=== PATIENT | male | born 1970 | race Caucasian/White ===

== ENCOUNTER 2024-12-09 17:21 | Emergency (ER) | payer OTHER, SELFPAY ==
--- OUTSIDE RECORDS SUMMARY | 2024-12-09 17:23 | XMS_ITS | Clinical Summary ---
Author Organization [facility] Address [place], [place] [address] Care Team Providers Care Cytologist Name Role Phone Rj Barron MD Primary Care Provider [phone] Allergies Active Allergy Reactions Criticality Noted Date Comments Iodine 12/26/2006 Shellfish Containing Products Anaphylaxis High 12/26 Medications nitroglycerin (NITROSTAT) 0.[address] 1 tablet under the tongue every 5 minutes if needed for Chest Pain (Hold for SBP less than 90.). 10 tablet 0 04/24/20 14 Active indomethacin (INDOCIN) 50 mg capsuleIndication s:Acute gout of left foot, unspecified cause Take 1 Capsule (50 mg) by mouth 3 times daily with meals. 30 capsule. 1 03/06/20 22 Active predniSONE (DELTASONE) 20 mg tabletIndications :Acute gout of left foot, unspecified cause Take 2 Tablets (40 mg) by mouth once daily. Can stop earlier if symptoms have resolved. 20 Tablet 03/06/20 22 Active FLUoxetine (PROZAC) 20 mg capsuleIndication s:Anxiety Take 3 Capsules (60 mg) by mouth every morning. 270 Capsule 3 07/24/20 23 Active atorvastatin (LIPITOR) 20 mg tabletIndications :Hyperlipidemia, unspecified hyperlipidemia type Take 1 Tablet (20 mg) by mouth once daily. 90 Tablet 3 07/24/20 23 Active EPINEPHrine (EpiPen) 0.3 mg/0.3 mL auto-injectorIndi cations:Shellfish allergy Inject 0.3 mg intramuscular one time if needed for Allergic Reaction. 2 Each 1 12/11/19 24 Active SUMAtriptan (IMITREX) 50 mg tabletIndications :Other migraine without status migrainosus, not intractable As directed 1 Tablet (50 mg) 2 times daily if needed for Migraine. Give at minimum 1-2hrs apart. Max Dose: 100mg per 24hrs. 10 Tablet 3 04/15/20 24 Active allopurinoL (ZYLOPRIM) 300 mg tabletIndications :Chronic gout of multiple sites, unspecified cause Take 1 Tablet (300 mg) by mouth once daily. 90 Tablet 3 05/16/20 24 Active propranolol ER (INDERAL LA) 80 mg Cs24 Sustained-Release capsuleIndication s:Other migraine without status migrainosus, not intractable Take 1 Capsule (80 mg) by mouth once daily. 90 Capsule 3 10/14/20 24 Active omeprazole (PRILOSEC) 20 mg Delayed-Release capsuleIndication s:Gastric reflux Take 1 Capsule (20 mg) by mouth once daily before a meal. Take 30 minutes prior to a meal 90 Capsule 1 12/02/19 25 Active prochlorperazine (COMPAZINE) 10 mg tabletIndications :Nausea Take 1 Tablet (10 mg) by mouth every 6 hours if needed for Nausea/Vomiting. 30 Tablet 12/02/19 25 Active polyethylene glycol-electrolyt e (GOLYTELY) 236-22.74-6.74 -5.86 gram suspensionIndicat ions:Screen for colon cancer Take 4,000 mL by mouth one time for 1 dose. 4000 mL 12/22/19 25 025 Active losartan-hydrochl orothiazide, 50-12.5 mg, (HYZAAR) 50-12.5 mg tabletIndications :HTN (hypertension) Take 1 Tablet by mouth once daily. 90 Tablet 3 12/09/19 25 Active betamethasone dipropionate 0.05% (DIPROSONE 0.05% CREAM) 0.05 % creamIndications: Spongiotic dermatitis Apply topically to affected area(s) 2 times daily. 45 g 1 01/11/20 21 025 Discontin ued(*Alessandra ent states no longer taking) diclofenac topical (VOLTAREN) 1 % gelIndications:Pr imary osteoarthritis of both hands Apply 2 g topically to affected area(s) four times daily. 100 g 1 02/26/20 24 025 Discontin ued(*Alessandra ent states no longer taking) ondansetron (ZOFRAN ODT) 4 mg disintegrating tabletIndications :Nausea Place 1 Tablet (4 mg) on the tongue every 8 hours if needed for Nausea/Vomiting. 30 Tablet 05/06/20 24 025 Discontin ued(*Med ineffecti ve) losartan (COZAAR) 50 mg tabletIndications :HTN (hypertension) Take 1 Tablet (50 mg) by mouth once daily. 90 Tablet 3 05/16/20 24 025 Discontin ued(*Medi cation adjustmen t) Active Problems Problem Noted Date Diagnosed Date ED 05/19/2022 AHI-48 06/01/2022 Gout 05/10/2018 Migraine without status migrainosus, not intract able 05/10/2018 Moderate episode of recurrent major depressive d isorder 02/19/2017 Hypertension 08/12/2011 Hyperlipidemia 03/14/2010 GERD 12/28/2006 Resolved Problems Problem Noted Date Diagnosed Date Resolved Date Chest pain 04/23/2014 02/19/2017 Depressive disorder, not elsewhere classified 12/28/19 07 02/19/2017 Encounters Date Type Department Care Team Description 12/09/2024 3:40 PM GLYCERIN OPERATOR Office Visit [facility] [address] [place] [address] Rj Barron MD Follow Up (Blood pressure) 12/09/2024 Travel 12/05/2024 Travel 12/04/2024 Nurse Triage [facility] [address] [place] [address] Rj Barron MD Headache; High Blood Pressure 12/04/[address] [place] [phone] Velma Coombs MD Letter For Work 12/03/[address] [place] [phone] Priti Lafleur, DO Need Meds 12/02/2024 2:30 PM GLYCERIN OPERATOR Office Visit [address] [place] [phone] Velma Coombs MD Nausea (about 3 months; comes and goes; no stomach pains; waking up at night from it; sometimes dizzy and lightheaded; hot sweats; ) 12/02/2024 Travel 12/02/2024 Telephone [facility] [address] [place] [address] Rj Barron MD Appointment Request 10/14/2024 2:50 PM GLYCERIN OPERATOR Office Visit [facility] [address] [place] [address] Rj Barron MD Migraine 10/14/2024 Travel 10/14/2024 Nurse Triage [facility] [address] [place] [address] Rj Barron MD Appointment Request; Headache (With nausea) 09/27/2024 7:15 AM CDT - 09/27/2024 8:40 AM CDT Emergency [facility] [address] [place] [address] Gerry Short DO Leonard, Kyle Patrick, MD Acute nonintractable headache, unspecified headache type (Primary Dx); Chronic migraine w/o aura, not intractable, w/o stat migr; Hypertension Discharge Disposition: Home Self Care 09/27/2024 Travel from Last 3 Months Immunizations Name Administration Dates Next Due AMB Influenza, IIV4 PF (=>6 mos Flulaval,Fluzone Fluarix)(Flu Clinic Only) 11/15/2019 COVID-19 vaccine ([employer] 30mcg/0.3mL) PF, MDV 12/15/2021,04/07/2021,03/10/2021 Influenza, IIV3 (Age >=3 years) 11/13/2012 Influenza, IIV4 11/20/2022,,01/11/2021,09/26/20 18,02/07/2017,10/20/2015 Td (Age >=7 Years) 11/20/2022 Tdap 11/13/2012 Zoster (Shingrix-RZV, recombinant) 05/02/2021, Family History Medical History Relation Name Comments Heart Disease Brother Diabetes Father Heart Disease Father [place] age38 Hyperlipidemia Father Hyperlipidemia Mother Heart Disease Sister 1 Cancer-colon Sister 2 Relation Name Status Comments Brother Father Maternal Grandmother Mother Sister 1 Sister 2 Alive Social History Tobacco Use Types Packs/Day Years Used Date Smoking Tobacco: Never Smokeless Tobacco: Never Tobacco Cessation:Counseling Given: Yes Alcohol Use Standard Drinks/Week Comments Not Currently 0 (1 standard drink = 0.6 oz pur e alcohol) seldom PHQ-2 Answer Date Recorded PHQ-2 TOTAL SCORE 0 08/26/2024 Social Connections Answer Date Recorded Do you often feel lonely or isolated from those around you? 0 02/26/2024 Financial Resource Strain Answer Date R ecorded Difficulty of Paying Living Expenses 3 02/26/2024 Difficulty of Paying Living Expenses Not on file 02/26/2024 Food Insecurity Answer Date Recorded Do you worry your food will run out before you are able to buy more? 1 02/26/2024 Transportation Needs Answer Date Record ed Does lack of transportation keep you from medica l appointments? 1 02/26/2024 Does lack of transportation keep you from work, meetings or getting things that you need? 1 02/26/2024 Housing Stability Answer Date Recorded What is your housing situation today? 1 02/26/2024 Interpersonal Safety Answer Date Record ed Are you being hit, kicked, p ushed or yelled at (see row info)? No 09/27/2024 Interpersonal Safety Abuse 12 - 18 Not on file 09/27/2024 Interpersonal Safety Ambulatory Vulnerability No t on file 09/27/2024 Utilities Answer Date Recorded Do you have trouble paying f or utilities (for example, heat, electricity, water, phone)? 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 on file Not on file Not on file Obstetrics History Last Filed Vital Signs Vital Sign Reading Time Taken Comments Blood Pressure 168/121 12/09/2024 3:47 PM GLYCERIN OPERATOR Pulse 70 12/09/2024 3:47 PM GLYCERIN OPERATOR Temperature 36.4 C (97.5 F) 09/27/2024 7:21 AM CDT Respiratory Rate 18 09/27/2024 7:21 AM CDT Oxygen Saturation 97% 12/09/2024 3:45 PM GLYCERIN OPERATOR Inhaled Oxygen Concentration - - Weight 106.6 kg (235 lb) 12/09/2024 3:45 PM GLYCERIN OPERATOR Height 166 cm (5' 5.35) 12/02/2024 2:51 PM GLYCERIN OPERATOR Body Mass Index 38.68 12/02/2024 2:51 PM GLYCERIN OPERATOR Plan of Treatment Upcoming Encounters Date Type Department Care Team (Latest Contact Info) Description 12/11/2024 9:00 AM GLYCERIN OPERATOR Office Visit [facility] [address] [place] [phone] 12/16/2024 8:20 AM GLYCERIN OPERATOR Hospital Encounter [facility] [address] [place] [address] Priti Lafleur, DO [address] [place] [address] 12/16/2024 8:20 AM GLYCERIN OPERATOR - 12/16/2024 9:20 AM GLYCERIN OPERATOR Surgery [facility] [address] [place] [address] Priti Lafleur, DO [address] [place] [address] ESOPHAGOGASTRODUODENOSCOPY 12/16/2024 3:20 PM GLYCERIN OPERATOR Office Visit [facility] [place] [facility] [address] [place] [address] Gregorio Santiago MD [address] [place] [address] Scheduled Procedures Name Priority Associated Diagnoses Date/Ti ms ESOPHAGOGASTRODUODENOSCOPY Gastric reflux Screen for colon cancer 12/16/2024 8:20 AM GLYCERIN OPERATOR COLONOSCOPY Gastric reflux Screen for colon cancer 12/16/2024 8:20 AM GLYCERIN OPERATOR Health Maintenance Due Date Last Done Comments Hepatitis C screening for ag e 18-79 1987 Pneumococcal series for age 50+ (1 of 1 - PCV) 2019 COVID-19 vaccine series ( - 2023- season) 2024 12/15/2021, 04/07/2021, 03/10/2021 Influenza for age 50-64 07/27/2024 11/20/20, 12/15/2021, 01/11/2021, Additional history exists Fecal testing sDNA-FIT ([place] guard) for age 45-75 01/03/2025 01/03/2022, 01/03/2022 Depression screening for age 12+ 08/27/2025 08/27/2024, 08/26/2024, 07/24/2023, Additional history exists BMI (ht and wt on same day) for age 18+ 12/02/2025 12/02/2024, 07/24/2023, 04/27/2022, Additional history exists Lipids for age 45-75 07/24/2028 07/24/2023, 12/21/2021, 01/11/2021, Additional history exists Tetanus booster 11/20/2032 11/20/2022, 11/13/2012 Tdap Completed 11/13/2012 Zoster (shingles) series for age 50+ Completed 05/02/2021, 01/11/2021 HIV for age 15-65 Completed 07/24/2023 Procedures Procedure Name Priority Date/Time Associated Diagnosis Comments MAGNESIUM STAT 09/27/2024 7:42 AM CDT BASIC METABOLIC PANEL STAT 09/27/2024 7:42 AM CDT CBC W PLT NO DIFF STAT 09/27/2024 7:4 2 AM CDT ANTI HIV 1/2 Add On 07/24/2023 5:11 PM CDT Screening for HIV (human immunodeficiency virus) LIPID PANEL Routine 07/24/2023 5:11 PM CDT Hyperlipidemia, unspecified hyperlipidemia type SCAN-FECAL TEST DNA (COLOGUARD) 01/03/2022 12:00 AM GLYCERIN OPERATOR from Last 3 Months or Most Recently Relevant to Health Maintenance Results * CBC W PLT NO DIFF (09/27/2024 7:42 AM CDT) WHITE BLOOD COUNT 6.5 4.5 - 11.0 thou/cu mm 09/27/2024 7:48 AM CDT [facility] RED BLOOD COUNT 4.84 4.30 - 5.90 mil/cu mm 09/27/2024 7:48 AM CDT [facility] HEMOGLOBIN 13.9 13.5 - 17.5 g/dL 09/27/2024 7:48 AM CDT [facility] HEMATOCRIT 41.4 37.0 - 53.0 % 09/27/2024 7:48 AM CDT [facility] MCV 86 80 - 100 fL 09/27/2024 7:48 AM CDT [facility] MCH 28.7 26.0 - 34.0 pg 09/27/2024 7:48 AM CDT [facility] MCHC 33.6 32.0 - 36.0 g/dL 09/27/2024 7:48 AM CDT [facility] RDW 13.2 11.5 - 15.5 % 09/27/2024 7:48 AM CDT [facility] PLATELET COUNT 209 140 - 440 thou/cu mm 09/27/2024 7:48 AM CDT [facility] MPV 9.6 6.5 - 11.0 fL 09/27/2024 7:48 AM T [facility] Blood BLOOD SPECIMEN / Unknown IV Start / Unknown 09/27/2024 7:42 AM CDT 09/27/2024 7:44 AM CDT us Gerry Short DO HEMATOLOGY Final R esult [facility] [address] [place] [address] * MAGNESIUM (09/27/2024 7:42 AM CDT) [facility] MAGNESIUM 2.2 1.6 - 2.6 mg/dL 09/27/2024 8:06 AM [facility] Blood BLOOD SPECIMEN / Unknown IV Start / Unknown 09/27/2024 7:42 AM CDT 09/27/2024 7:45 AM CDT us Gerry Short DO CHEMISTRY Final R esult [facility] [address] [place] [address] * (ABNORMAL) BASIC METABOLIC PANEL (09/27/2024 7:42 AM CDT) SODIUM 140 136 - 145 mmol/L 09/27/2024 8:06 AM [facility] POTASSIUM 4.2 3.5 - 5.1 mmol/L 09/27/2024 8:06 AM [facility] CHLORIDE 104 98 - 107 mmol/L 09/27/2024 8:06 AM [facility] CO2,TOTAL 25 22 - 29 mmol/L 09/27/2024 8:06 AM [facility] ANION GAP 11 5 - 18 09/27/2024 8:06 AM [facility] GLUCOSE 106(H) 70 - 99 mg/dL 09/27/2024 8:06 AM [facility] CALCIUM 9.1 8.6 - 10.0 mg/dL 09/27/2024 8:06 AM [facility] BUN 17 6 - 20 mg/dL 09/27/2024 8:06 AM [facility] CREATININE 1.24(H) 0.70 - 1.20 mg/dL 09/27/2024 8:06 AM [facility] BUN/CREAT RATIO 14 10 - 20 8:06 AM [facility] eGFR 69(L) >90 mL/min/1.7 3m2 09/27/2024 8:06 AM [facility] Comment:As of 2022, eG FR is calculated by the CKD-EPI creatinine equation without race adjustment. eGFR can be influenced by muscle mass, exercise, and diet. The reported eGFR is an estimation only and is only applicable if the renal function is stable. Blood BLOOD SPECIMEN / Unknown IV Start / Unknown 09/27/2024 7:42 AM CDT 09/27/2024 7:45 AM CDT us Gerry Short DO CHEMISTRY Final R esult Performing Organization Address City/[facility]/ZIP Co de Phone Number [facility] [address] [place] [address] * ANTI HIV 1/2 [60088.0] (07/24/2023 5:11 PM CDT) [facility] HIV-1/HIV-2 SCREEN Non-Reacti ve Non-Reacti ve 07/26/2023 7:20 AM CDT [facility] Comment:HIV-1 p24 and HIV-1/ HIV-2 Ab Not Detected. Blood BLOOD SPECIMEN / Unknown Venipuncture / Unknown 07/24/2023 5:11 PM CDT 07/24/2023 5:11 PM CDT us Rj Barron MD SEND OUTS Final Resu lt Performing Organization Address [facility] Co de Phone Number [facility] [address] [place] [address], [place] * (ABNORMAL) LIPID PANEL (07/24/2023 5:11 PM CDT) Pathologist [facility] CHOLESTEROL,TOTAL 169 100 - 199 mg/dL 07/25/2023 4:18 PM CDT [facility] Comment: Cholesterol, Total Reference Ranges Desirable <200 mg/dL Borderline 200-239 mg/dL High >=240 mg/dL TRIGLYCERIDES 384(H) <150 mg/dL 07/25/2023 4:18 PM CDT [facility] HDL CHOLESTEROL 22(L) >40 mg/dL 4:18 PM CDT [facility] NON-HDL CHOLESTEROL 147(H) <145 mg/dl 07/25/2023 4:18 PM CDT [facility] CHOL/HDL RATIO 7.68(H) <4.50 07/25/2023 4:18 PM CDT [facility] LDL CHOLESTEROL 70 <=130 mg/dL 07/25/2023 4:18 PM CDT [facility] VLDL CHOLESTEROL 77(H) <=30 mg/dL 07/25/2023 4:18 PM CDT [facility] PROVIDER ORDERED STATUS RANDOM 07/25/2023 4:18 PM CDT [facility] Blood BLOOD SPECIMEN / Unknown Venipuncture / Unknown 07/24/2023 5:11 PM CDT 07/24/2023 5:11 PM CDT us Rj Barron MD CHEMISTRY Final Resu lt [facility] [address] [place] [address], [place] * SCAN-FECAL TEST DNA (COLOGUARD) (01/03/2022 12:00 AM GLYCERIN OPERATOR) us Scanner OTHER Final Result from Last 3 Months or Most Recently Relevant to Health Maintenance Insurance [place]ON[place] LEE [id number] [facility] Advance Directives * Full Code (Latest Code Status on File) Date Activated Date Inactivated Comments 04/23/2014 1:09 PM 04/24/2014 4:07 PM Care Teams Cytologist Relationship Specialty Start Date End Date Rj Barron MD [address] [place] [address] PCP - General Family Practice 03/07/19
[2024-12-09 17:28] VITALS: BP 187/111; PULSE 64; RESP 20; TEMP 36.1; O2SAT 97; BMI 38.6
--- NOTE | 2024-12-09 17:37 | ED.GENADULT ---
HPI - General Adult General Time Seen by Provider: 17:30 Date Seen: 12/09/24 Chief complaint: Chest Pain Stated complaint: Had an EKG at [facility], sent here due to results Time Seen by Provider: 12/09/24 17:30 Source: patient, RN notes reviewed and old records reviewed Mode of arrival: ambulatory Limitations: no limitations History of Present Illness HPI narrative: This 54-year-old male is referred from clinic by Dr. Barron for complaint of intermittent episodic left chest pain and changes on an EKG. Patient has been in multiple times to the clinic for evaluation for nausea and migraine headaches. For his nausea that is happening most mornings, he is scheduled to have an EGD and colonoscopy. He states that no imaging has been done to date. He has noted some episodic left chest pain, can come with exertion, usually only last minute or 2. He thinks he maybe last had it this morning. He has no chest pain now. He had some mild EKG changes today in clinic with flipped T-wave in lead V1, flattened potentially in AVF and flipped in lead [address] segment changes, lead 2 was normal. Prior EKGs from 2020 showed normal sinus rhythm with out any inferior changes, did have flipped T-wave in lead V1. In 2021, flattened T-waves lead 3 but upright in V1. All of these EKGs have sinus rhythm. He notes no abdominal pain with his symptoms. He is not having any chest pain now. He does have hypertension, his notes that he really only started consistently taking his medicines again about 4 days ago. Over the last 3 months, thought some of his side effects for perhaps coming from medicine with nausea and was going off medicines. Same for his hyperlipidemia. He is to be on the Lipitor 20 mg daily, Cozaar 50 mg daily, Cozaar with hydrochlorothiazide 50/12.5 mg daily. Propranolol extended release 80 mg daily. He is on other meds as well, please see med rec. He does not use any nicotine products, no significant alcohol use. He last had a stress test in 2018. He has never been diagnosed with heart disease but there is a very strong family history of it. His father his brother and his sister have all from heart disease at young age. It would seem that his note today suggest that he is just on losartan, not the losartan hydrochlorothiazide. He is scheduled for an EGD and colonoscopy for December 16 for further evaluation of his nausea symptoms. Thyroid testing as well as metanephrines were ordered from clinic today as he has had some worsening hypertension recently. Noted once maybe with the chest symptoms that it hurt worse with taking a deep breath but otherwise has not noted any respiratory symptoms. He notes no regurgitant symptoms with his nausea, does not sound like he is feeling definite reflux. He has been placed on omeprazole for this. I do see obstructive sleep apnea listed on his problem she does well. Related Data Home Medications ?Medication ?Instructions ?Recorded ?Confirmed losartan 50 mg-hydrochlorothiazide 1 tab PO DAILY 12/09/24 12/09/24 12.5 mg tablet Review of Systems Status of ROS: Reports: 6 or more systems reviewed and unremarkable except as noted in History and below [facility] Medical History (Updated 12/09/24 @ 19:36 by Luisa Mercer MD) Hyperlipidemia ?E78.5 - Hyperlipidemia, unspecified (ICD-10) Hypertension ?I10 - Essential (primary) hypertension (ICD-10) Social History Smoking Status: Never smoker How often do you have a drink containing alcohol: monthly or less AUDIT-C Alcohol total score: 1 Non-prescribed substance use: denies use Exam Const: Vital Signs, click to edit/add: Vital Signs - 24 hr 12/09/24 17:28 12/09/24 18:03 Temperature 96.9 F L Pulse Rate [Pulse Oximeter] 64 Respiratory Rate 20 Blood Pressure [Ri ght Upper Arm] 187/111 H Pulse Oximetry 97 96 Oxygen Delivery Me thod Room Air This 54-year-old male is alert, interactive, no apparent distress. Very pleasant. Symmetric facial function, able speak in complete sentences. Pupils equal round reactive, sclera clear, extraocular muscles intact. Symmetric facial function. Neck is thick, but note no masses, no thyromegaly masses or nodules. Lungs are clear, good air entry, no wheezing or crackles. CV regular rate and rhythm, no murmur, normal S1-S2, no S3-S4. Abdomen is obese but soft, no rebound or guarding, no organomegaly. He has no lower extremity edema. He was ambulatory into the ED of his own Documenting provider has reviewed patient's vital signs: yes Course Course ED Course: This 54-year-old male is having brief recurrent episodes of chest discomfort over last 3 weeks. He has also been plagued by migraine headaches and nausea. Thyroid and metanephrine testing was ordered through clinic. Will get a portable chest x-ray, consider further advanced imaging if D-dimer is elevated. Will get a troponin but a solitary troponin in this scenario will not adequately rule out heart disease. His primary has ordered a stress echo to be done on in clinic which certainly would be appropriate if we can discharge. Will update an EKG here. Chest symptoms could be from GI sources as well. Will consider respiratory infections, cardiovascular disease including ischemic as well as potential dissection or aneurysm. Right now he is hypertensive but asymptomatic. Do agree with some of the pending test from clinic and we will look to rule out more emergent causes here in the ER. Reevaluation(s) Time of Reevaluation #1: 19:30 Reevaluation #1: Have reviewed normal troponin, normal D-dimer and other normal labs. His chest x-ray is normal as well. He has had no chest pain since this morning. These episodes are short lasting only a minute or so. We have discussed that we have ruled out evidence of ischemic damage or acute heart attack within normal troponin but his symptoms have not been ruled out as still being possibly coming from underlying ischemic disease to the heart. It is important that he follows through with stress testing. This has been ordered in the clinic for this and I do think at this time it is acceptable for discharge. He understands he needs to return for worsening or further symptoms. Vital Signs Vital signs: Initial Vital Signs Temperature 96.9 F L 12/09/24 17:28 Temperature Source Temporal Artery Scan 12/09/24 17:28 Pulse Rate 64 12/09/24 17:28 Respiratory Rate 12/09/24 17:28 Blood Pressure 187/111 H 12/09/24 17:28 Blood Pressure Mean 136 H 12/09/24 17:28 Blood Pressure Position Supine 12/09/24 17:28 Pulse Oximetry 97 12/09/24 17:28 Oxygen Delivery Method Room Air 12/09/24 17:28 Vital Signs Temperature 96.9 F L 12/09/24 17:28 Pulse Rate 64 12/09/24 17:28 Respiratory Rate 20 12/09/24 17:28 Blood Pressure 187/111 H 12/09/24 17:28 Pulse Oximetry 97 12/09/24 17:28 Oxygen Delivery Method Room Air 12/09/24 17:28 Temperature 96.9 F L 12/09/24 17:28 Pulse Rate 64 12/09/24 17:28 Respiratory Rate 20 12/09/24 17:28 Blood Pressure 187/111 H 12/09/24 17:28 Pulse Oximetry 96 12/09/24 18:03 Oxygen Delivery Method Room Air 12/09/24 17:28 Medical Decision Making Lab Data Lab results reviewed: Yes I reviewed the patient's lab results Labs: Lab Results 12/09/24 12/09/24 Range/Units 17:50 17:59 WBC 7.66 (4.50-11.00) K/uL RBC 5.05 (4.30-5.90) m/uL Hgb 14.2 (13.5-17.5) gm/dL Hct 42.6 (37.0-53.0) % MCV 84 (80-100) fL MCH 28 (26-34) pg MCHC 33 (32-36) gm/dL RDW Coeff of Virgilio 13.1 (11.5-15.5) % Plt Count 262 (140-440) K/uL Neut % (Auto) 60.8 (42.0-72.0) % Lymph % (Auto) 29.1 (20-44) % Travis % (Auto) 6.0 (0.0-11.0) % Eos % (Auto) 3.3 (0.0-7.0) % Baso % (Auto) 0.5 (0.0-3.0) % Neut # (Auto) 4.66 (1.7-7.0) K/uL Lymph # (Auto) 2.23 (0.90-2.90) K/uL Travis # (Auto) 0.50 (0.00-0.90) K/UL Eos # (Auto) 0.25 (0.00-0.50) K/uL Baso # (Auto) 0.04 (0.00-0.30) K/uL Abs Immat Gran (auto) 0.02 (0.00-0.30) K/uL Imm/Tot Granulo (auto) 0.3 % D-Dimer Quant (PE/DVT) 0.23 (0.00-0.50) ug/ml Sodium 140 (135-149) mmol/L Potassium 4.1 (3.6-5.1) mmol/L Chloride 104 (96-114) mmol/L Carbon Dioxide 26 (20-32) mmol/L Anion Gap 10 (7-15) mEq/L BUN 16 (7-30) mg/dL Creatinine 1.0 (0.5-1.5) mg/dL Estimated Creat Clear 69.89 Estimated GFR 89 ml/min Glucose 98 (60-115) mg/dL Calcium 9.3 (8.4-10.6) mg/dL Magnesium 2.2 (1.5-2.6) mg/dL Total Bilirubin 0.6 (0.1-1.5) mg/dL AST 23 (12-35) U/L ALT 32 (4-50) U/L Alkaline Phosphatase 69 (40-150) U/L Troponin I < 0.01 L (0.01-0.04) ng/mL C-Reactive Protein 1.7 H (0.5-1.0) mg/dL NT-Pro-B Natriuret Pep 79 pg/mL Total Protein 7.4 (6.0-8.3) g/dL Albumin 4.3 (3.3-5.0) g/dL Lipase 97 (23-300) U/L Imaging Data Chest x-ray: Attestation: I have reviewed the pertinent imaging results. My impression: I do not see any consolidation, infiltrate, CHF on my preliminary review. Radiologist's impression: Patient: KIRA ROMERO Facility:?[facility] Patient ID:?[id number] Site Patient ID:?[id number]. Site :?[id number] Study:?XRay-Chest 1V PORTABLE-12/09/2024 6:40:36 PM Ordering Physician:?Ruslan Moran Final Report: INDICATION: Episodic chest pain. TECHNIQUE: Chest 1 views. COMPARISON: None. FINDINGS: Cardiovascular and mediastinum: Cardiomediastinal silhouette is within normal limits. Lungs and pleural spaces: Low lung volumes, But lungs are clear. No sign of pleural effusion. No pneumothorax. Bones and soft tissues: No significant findings. IMPRESSION: No acute cardiopulmonary process identified. Dictated by Orlando Stewart MD @ 12/09/2024 7:13:50 PM (Electronic Signature) ECG Data Attestation: I personally reviewed and interpreted this ECG as follows: (Sinus rhythm, 73 beats per minute. Poor R-wave progression anterior precordial leads with isolated flipped T-wave V1 without any ST segment. There is some artifact noted. Flattened T-wave morphology in lead 3 with small Q-wave but nothing else in the inferior leads definitive for ischemic or inf) Prior ECG tracings: available for review (Please see HPI where these EKGs are discussed ) Discharge Plan Discharge Clinical Impression: Chest pain Qualifiers: Chest pain type: unspecified Qualified Code(s): R07.9 - Chest pain, unspecified Patient Disposition: Home, Self-Care Condition: Stable Instructions: Chest Pain (ED), Noncardiac Chest Pain (ED) Additional Instructions: Continue to work with your primary Dr. Barron. Please follow through with the stress echo that he has scheduled for . It is important that you do this to further evaluate for possible underlying heart disease. Your troponin was normal here, that shows thus you have not had any acute heart damage from these chest pain events but does not rule out the possibility of underlying heart disease. If you have increasing symptoms, return of chest pain, do recommend re-evaluation. Continue to work on blood pressure management at clinic. It is always possible that chest symptoms can be coming from GI sources, labs were reassuring here tonight but do agree with proceeding with the scopes is ordered through clinic as a next step. Activity Level: Activity as Tolerated Prescriptions: No Action losartan-hydrochlorothiazide 50-12.5 mg tablet 1 tab PO DAILY Follow Up/Referrals: Provider,Not a Local [Primary Care Provider] - Stand Alone Forms: MyHealth Info Instructions
--- NOTE | 2024-12-09 17:38 | CRLHL7_ITS ---
For Patients: As a result of the Century Cures Act, medical imaging exams and procedure reports are released immediately into your electronic medical record. You may view this report before your referring provider. If you have questions, please contact your health care provider. INDICATION: Episodic chest pain. TECHNIQUE: Chest 1 views. COMPARISON: None. FINDINGS: Cardiovascular and mediastinum: Cardiomediastinal silhouette is within normal limits. Lungs and pleural spaces: Low lung volumes, But lungs are clear. No sign of pleural effusion. No pneumothorax. Bones and soft tissues: No significant findings. IMPRESSION: No acute cardiopulmonary process identified. Dictated by Orlando Stewart MD @ 12/09/2024 7:13:50 PM (Electronically Signed)
--- OUTSIDE RECORDS SUMMARY | 2024-12-09 17:49 | XMS_ITS | Clinical Summary ---
Author Organization [employer] [facility] Address [place], [place] [address] Care Team Providers Care L Tacker Name Role Phone Rj Barron MD Primary Care Provider [phone] Allergies Active Allergy Reactions Criticality Noted Date [...] Department Care Team Description 12/09/2024 3:40 PM [employer] Office Visit [facility] [address] [place] [address] Rj Barron MD Follow Up (Blood pressure) 12/09/2024 Travel 12/05/2024 Travel 12/04/2024 Nurse Triage [facility] [address] [place] [address] Rj Barron MD Headache; High Blood Pressure 12/04/[address] [place] [phone] Velma Coombs MD Letter For Work 12/03/[address] [place] [phone] Priti Lafleur, DO Need Meds 12/02/2024 2:30 PM [employer] Office Visit [address] [place] [phone] Velma Coombs MD Nausea (about 3 months; comes and goes; no stomach pains; waking up at night from it; sometimes dizzy and lightheaded; hot sweats; ) 12/02/2024 Travel 12/02/2024 Telephone [facility] [address] [facility] [place] [address] Rj Barron MD Appointment Request 10/14/2024 2:50 PM [employer] Office Visit [facility] [address] [facility] [place] [place] [address] Rj Barron MD Migraine 10/14/2024 Travel 10/14/2024 Nurse Triage [facility] [address] [facility] [place] [place] [address] Rj Barron MD Appointment Request; Headache (With nausea) 09/27/2024 7:15 AM CDT - 09/27/2024 8:40 AM CDT Emergency [facility] [address] [place] [address] Gerry Short DO Leonard, Kyle Patrick, MD Acute nonintractable headache, unspecified headache type (Primary Dx); Chronic migraine w/o aura, not intractable, w/o stat migr; Hypertension Discharge Disposition: Home Self Care 09/27/2024 Travel from Last 3 Months Immunizations Name Administration Dates Next Due AMB Influenza, IIV4 PF (=>6 mos Flulaval,Fluzone Fluarix)(Flu Clinic Only) 11/15/2019 COVID-19 vaccine (DataRose 30mcg/0.3mL) PF, MDV 12/15/2021,04/07/2021,03/10/2021 Influenza, IIV3 (Age >=3 years) 11/13/2012 Influenza, IIV4 11/20/2022,,01/11/2021,09/26/20 18,02/07/2017,10/20/2015 Td (Age >=7 Years) 11/20/2022 Tdap 11/13/2012 Zoster (Shingrix-RZV, recombinant) 05/02/2021, Family History Medical History Relation Name Comments Heart Disease Brother Diabetes Father Heart Disease Father [place] age38 Hyperlipidemia Father Hyperlipidemia Mother Heart Disease [...] on file Legal Sex Male 5:23 AM [employer] Gender Identity Not on file Sexual Orientation Not on file 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 on file Not on file Obstetrics History Last Filed Vital Signs Vital Sign Reading Time Taken Comments Blood Pressure 168/121 12/09/2024 3:47 PM [employer] Pulse 70 12/09/2024 3:47 PM [employer] Temperature 36.4 C (97.5 F) 09/27/2024 7:21 AM CDT Respiratory Rate 18 09/27/2024 7:21 AM CDT Oxygen Saturation 97% 12/09/2024 3:45 PM [employer] Inhaled Oxygen Concentration - - Weight 106.6 kg (235 lb) 12/09/2024 3:45 PM [employer] Height 166 cm (5' 5.35) 12/02/2024 2:51 PM [employer] Body Mass Index 38.68 12/02/2024 2:51 PM [employer] Plan of Treatment Upcoming Encounters Date Type Department Care Team (Latest Contact Info) Description 12/11/2024 9:00 AM [employer] Office Visit [facility] [address] [place] [phone] 12/16/2024 8:20 AM [employer] Hospital Encounter [facility] [address] [place] [address] Priti Lafleur, DO [address] [place] [address] 12/16/2024 8:20 AM [employer] - 12/16/2024 9:20 AM [employer] Surgery [facility] [address] [place] [address] Priti Lafleur, DO [address] [place] [address] ESOPHAGOGASTRODUODENOSCOPY 12/16/2024 3:20 PM [employer] Office Visit [facility] [place] [facility] [address] [place] [address] Gregorio Santiago MD [address] [place] [address] Scheduled Procedures Name Priority Associated Diagnoses Date/Ti oh ESOPHAGOGASTRODUODENOSCOPY Gastric reflux Screen for colon cancer 12/16/2024 8:20 AM [employer] COLONOSCOPY Gastric reflux Screen for colon cancer 12/16/2024 8:20 AM [employer] Health Maintenance Due Date Last Done Comments Hepatitis C screening for ag e 18-79 1987 Pneumococcal series for age 50+ (1 of 1 - PCV) 2019 COVID-19 vaccine series ( - 2023- season) 2024 12/15/2021, 04/07/2021, 03/10/2021 Influenza for age 50-64 07/27/2024 11/20/20, 12/15/2021, 01/11/2021, Additional history exists Fecal testing sDNA-FIT ([place] guard) for age 45-75 01/03/2025 01/03/2022, 01/03/2022 [...] SCAN-FECAL TEST DNA (COLOGUARD) 01/03/2022 12:00 AM [employer] from Last 3 Months or Most Recently Relevant to Health Maintenance Results * CBC W PLT NO DIFF (09/27/2024 7:42 AM CDT) WHITE BLOOD COUNT 6.5 4.5 - 11.0 thou/cu mm 09/27/2024 7:48 AM CDT [facility] RED BLOOD COUNT 4.84 4.30 - 5.90 mil/cu mm 09/27/2024 7:48 AM CDT [facility] HEMOGLOBIN 13.9 13.5 - 17.5 g/dL 09/27/2024 7:48 AM CDT [facility] HEMATOCRIT 41.4 37.0 - 53.0 % 09/27/2024 7:48 AM CDT [facility] MCV 86 80 - 100 fL 09/27/2024 7:48 AM CDT [facility] MCH 28.7 26.0 - 34.0 pg 09/27/2024 7:48 AM CDT [facility] MCHC 33.6 32.0 - 36.0 g/dL 09/27/2024 7:48 AM CDT [facility] RDW 13.2 11.5 - 15.5 % 09/27/2024 7:48 AM CDT [facility] PLATELET COUNT 209 140 - 440 thou/cu mm 09/27/2024 7:48 AM CDT [facility] MPV 9.6 6.5 - 11.0 fL 09/27/2024 7:48 AM T [facility] Blood BLOOD SPECIMEN / Unknown IV Start / Unknown 09/27/2024 7:42 AM CDT 09/27/2024 7:44 AM CDT us Gerry Short DO HEMATOLOGY Final R esult [facility] [address] [place] [address] * MAGNESIUM (09/27/2024 7:42 AM CDT) [facility] MAGNESIUM 2.2 1.6 - 2.6 mg/dL 09/27/2024 8:06 AM [facility] Blood BLOOD SPECIMEN / Unknown IV Start / Unknown 09/27/2024 7:42 AM CDT 09/27/2024 7:45 AM CDT us Gerry Short DO CHEMISTRY Final R esult [facility] [address] [place] [address] * (ABNORMAL) BASIC METABOLIC PANEL (09/27/2024 7:42 AM CDT) SODIUM 140 136 - 145 mmol/L 09/27/2024 8:06 AM [facility] POTASSIUM 4.2 3.5 - 5.1 mmol/L 09/27/2024 8:06 AM [facility] CHLORIDE 104 98 - 107 mmol/L 09/27/2024 8:06 AM [facility] CO2,TOTAL 25 22 - 29 mmol/L 09/27/2024 8:06 AM [facility] ANION GAP 11 5 - 18 09/27/2024 8:06 AM [facility] GLUCOSE 106(H) 70 - 99 mg/dL 09/27/2024 8:06 AM [facility] CALCIUM 9.1 8.6 - 10.0 mg/dL 09/27/2024 8:06 AM [facility] BUN 17 6 - 20 mg/dL 09/27/2024 8:06 AM [facility] CREATININE 1.24(H) 0.70 - 1.20 mg/dL 09/27/2024 8:06 AM [facility] BUN/CREAT RATIO 14 10 - 20 8:06 AM [facility] eGFR 69(L) >90 mL/min/1.7 3m2 09/27/2024 8:06 AM [facility] Comment:As of 2022, eG FR is calculated by the CKD-EPI creatinine equation without race adjustment. eGFR can be influenced by muscle mass, exercise, and diet. The reported eGFR is an estimation only and is only applicable if the renal function is stable. Blood BLOOD SPECIMEN / Unknown IV Start / Unknown 09/27/2024 7:42 AM CDT 09/27/2024 7:45 AM CDT us Gerry Shotr DO CHEMISTRY Final R esult Performing Organization Address City/[facility]/ZIP Co de Phone Number [facility] [address] [place] [address] * ANTI HIV 1/2 [60415.0] (07/24/2023 5:11 PM CDT) [facility] HIV-1/HIV-2 SCREEN Non-Reacti ve Non-Reacti ve 07/26/2023 7:20 AM CDT [facility] Comment:HIV-1 p24 and HIV-1/ HIV-2 Ab Not Detected. Blood BLOOD SPECIMEN / Unknown Venipuncture / Unknown 07/24/2023 5:11 PM CDT 07/24/2023 5:11 PM CDT us Rj Barron MD SEND OUTS Final Resu lt Performing Organization Address [facility] Co de Phone Number [facility] [address] [place] [address], [place] * (ABNORMAL) LIPID PANEL (07/24/2023 5:11 PM CDT) Pathologist [facility] CHOLESTEROL,TOTAL 169 100 - 199 mg/dL 07/25/2023 4:18 PM CDT [facility] Comment: Cholesterol, Total Reference Ranges Desirable <200 mg/dL Borderline 200-239 mg/dL High >=240 mg/dL TRIGLYCERIDES 384(H) <150 mg/dL 07/25/2023 4:18 PM CDT [facility] HDL CHOLESTEROL 22(L) >40 mg/dL 4:18 PM CDT [facility] NON-HDL CHOLESTEROL 147(H) <145 mg/dl 07/25/2023 4:18 PM CDT [facility] CHOL/HDL RATIO 7.68(H) <4.50 07/25/2023 4:18 PM CDT [facility] LDL CHOLESTEROL 70 <=130 mg/dL 07/25/2023 4:18 PM CDT [facility] VLDL CHOLESTEROL 77(H) <=30 mg/dL 07/25/2023 4:18 PM CDT [facility] PROVIDER ORDERED STATUS RANDOM 07/25/2023 4:18 PM CDT [facility] Blood BLOOD SPECIMEN / Unknown Venipuncture / Unknown 07/24/2023 5:11 PM CDT 07/24/2023 5:11 PM CDT us Rj Barron MD CHEMISTRY Final Resu lt [facility] [address] [place] [address], [place] * SCAN-FECAL TEST DNA (COLOGUARD) (01/03/2022 12:00 AM [employer]) us Scanner OTHER Final Result from Last 3 Months or Most Recently Relevant to Health Maintenance Insurance [place]EE [id number] [facility] Advance Directives * Full Code (Latest Code Status on File) Date Activated Date Inactivated Comments 04/23/2014 1:09 PM 04/24/2014 4:07 PM Care Teams L Tacker Relationship Specialty Start Date End Date Rj Barron MD [address] [place] [address] PCP - General Family Practice 03/07/19
[2024-12-09 18:03] VITALS: O2SAT 96
[2024-12-09 18:06] LABS: Lactate* 1.5 mmol/L (0.5-1.9)
[2024-12-09 18:09] LABS: Basophils Absolute Auto 0.04 K/uL (0.00-0.30); Basophils Percent Auto 0.5 % (0.0-3.0); Eosinophils Absolute Auto 0.25 K/uL (0.00-0.50); Eosinophils Percent Auto 3.3 % (0.0-7.0); Hematocrit 42.6 % (37.0-53.0); Hemoglobin* 14.2 gm/dL (13.5-17.5); Immature Granulocytes Abs Auto 0.02 K/uL (0.00-0.30); Immature Granulocytes Pct Auto 0.3 %; Lymphocytes Absolute Auto 2.23 K/uL (0.90-2.90); Lymphocytes Percent Auto 29.1 % (20-44); Mean Corpuscular HGB Conc 33 gm/dL (32-36); Mean Corpuscular Hemoglobin 28 pg (26-34); Mean Corpuscular Volume 84 fL (80-100); Neutrophils Absolute Auto 4.66 K/uL (1.7-7.0); Neutrophils Percent Auto 60.8 % (42.0-72.0); Platelet Count* 262 K/uL (140-440); RDW Coefficient of Variation % 13.1 % (11.5-15.5); Red Blood Count 5.05 m/uL (4.30-5.90); White Blood Count* 7.66 K/uL (4.50-11.00)
[2024-12-09 18:36] LABS: D Dimer Quantitative* 0.23 ug/ml (0.00-0.50)
[2024-12-09 18:42] LABS: Slide Review Reflex No
[2024-12-09 18:45] LABS: Albumin* 4.3 g/dL (3.3-5.0); Chloride* 104 mmol/L (96-114)
[2024-12-09 18:46] LABS: Potassium* 4.1 mmol/L (3.6-5.1); Sodium* 140 mmol/L (135-149)
[2024-12-09 18:48] LABS: Bilirubin Total* 0.6 mg/dL (0.1-1.5); Est. Creatinine Clearance* 69.89; Estimated Glomerular Filt Rate 89 ml/min
[2024-12-09 18:49] LABS: Alanine Aminotransferase* 32 U/L (4-50); Alkaline Phosphatase* 69 U/L (40-150); Anion Gap 10 mEq/L (7-15); Aspartate Amino Transferase* 23 U/L (12-35); Blood Urea Nitrogen* 16 mg/dL (7-30); Calcium* 9.3 mg/dL (8.4-10.6); Carbon Dioxide* 26 mmol/L (20-32); Glucose* 98 mg/dL (60-115); Lipase* 97 U/L (23-300); Total Protein* 7.4 g/dL (6.0-8.3)
[2024-12-09 18:50] LABS: Magnesium* 2.2 mg/dL (1.5-2.6)
[2024-12-09 18:52] LABS: C Reactive Protein* 1.7 mg/dL (0.5-1.0)
[2024-12-09 19:04] LABS: NT Pro B Type NatriureticPept* 79 pg/mL; Troponin I* < 0.01 ng/mL (0.01-0.04)
== END 2024-12-09 19:46 | disposition home or self-care (01) ==
PROVIDERS: Emergency Provider Family Medicine
DX: R07.9 Chest pain, unspecified (principal)
CPT/HCPCS: 36415; 71045; 80053; 83605; 83690; 83735; 83880; 84484; 85025; 85379; 86140; 93005; 94761; 99284; 99285